=== PATIENT | female | born 1990 | race African-American/Black ===

== ENCOUNTER 2017-03-11 09:16 | Emergency (ER) | payer MEDICAID ==
[~2017-03-11] VITALS: Ht 170.2 cm; Wt 79.8 kg
[2017-03-11] MEDS ORDERED: SODIUM CHLORIDE 0.9% 1,000 ML IV ONE (09:32)
[2017-03-11] MEDS ORDERED: PROM25SU34 RC (10:00)
[2017-03-11] MEDS ORDERED: SODIUM CHLORIDE FLUSH 10ML SYR IVF ONE (10:00)
[2017-03-11] MEDS ORDERED: ONDANSETRON 2MG/ML, 2ML IVPush ONE (10:00)
[2017-03-11] MEDS ORDERED: ONDA4TAB7 PO (10:00)
[2017-03-11] MEDS ORDERED: SODIUM CHLORIDE 0.9% 1,000ML IVBOLUS ONE (10:00)
[2017-03-11] MEDS ORDERED: ONDANSETRON 2MG/ML, 2ML ONE (10:10)
[2017-03-11] MEDS ORDERED: HYDROmorphone 1 MG/ML, 1ML ONE ×2 (10:10→11:38)
[2017-03-11] MEDS: HYDROmorphone 1 MG/ML, 1ML IVPush PRN ×2 (10:39→11:44)
[2017-03-11 10:56] LABS: ASPARTATE AMINO TRANSFERASE 11 U/L (15-37); BLOOD UREA NITROGEN 7 mg/dL (7-18)
[2017-03-11 12:56] VITALS: BP 101/55
== END 2017-03-11 12:58 | disposition home or self-care (01) ==
LOC: ED 09:45
DX: R10.12 Left upper quadrant pain (principal); R10.11 Right upper quadrant pain; R10.13 Epigastric pain; F17.200 Nicotine dependence, unspecified, uncomplicated; K80.20 Calculus of gallbladder without cholecystitis without obstruction
CPT/HCPCS: 36415; 76700; 80053; 81003; 83605; 83690; 84703; 85025; 96361; 96374; 96375; 96376; 99285; J1170; J2405; J7030

== ENCOUNTER 2020-11-08 18:07 | Emergency (ER) | payer MEDICAID ==
[~2020-11-08] VITALS: Ht 170.2 cm; Wt 65.5 kg
[~2020-11-08 18:07] MED LIST: ONDA4TAB7 PO; PROM25SU34 RC
[2020-11-08 18:38] LABS: MICROSCOPIC AUTO
--- NOTE | 2020-11-08 18:49 | NUR ---
received report from anthony MOISE and Sandy MOISE. i assume care at this time
[2020-11-08 18:53] LABS: BASOPHILS % (AUTO) 0 % (0-1); EOSINOPHILS % (AUTO) 2 % (1-7); LYMPHOCYTES % (AUTO) 24 % (22-44); MD NO; MEAN CORPUSCULAR HEMOGLOBIN 29.7 pg (27.0-34.8); MEAN CORPUSCULAR HGB CONC 33.6 g/dL (32.4-35.8); MEAN PLATELET VOLUME 7.6 fL (7.4-10.4); MONOCYTES % (AUTO) 7 % (2-9); NEUTROPHILS % (AUTO) 67 % (42-75); PLATELET COUNT 289 x10^3/uL (130-400); RED BLOOD COUNT 3.82 x10^6/uL (3.82-5.3); RED CELL DISTRIBUTION WIDTH 15.6 % (9.6-15.2)
[2020-11-08] MEDS ORDERED: SODIUM CHLORIDE 0.9% 1,000ML IVBOLUS ONE ×2 (19:00→20:00)
[2020-11-08] MEDS ORDERED: SODIUM CHLORIDE FLUSH 10ML SYR IVF ONE (19:00)
[2020-11-08] MEDS ORDERED: FERR-51 PO (19:05)
[2020-11-08] MEDS ORDERED: LEVO500T8 PO (19:05)
[2020-11-08] MEDS ORDERED: METR-90 PO (19:05)
--- NOTE | 2020-11-08 19:05 | NUR ---
IV placed and RN reviewed plan of care with patient. in NAD. VS remain stable on RA. will continue to monitor
[2020-11-08 19:06] LABS: ALANINE AMINOTRANSFERASE 16 U/L (12-78); ALBUMIN 3.3 g/dL (3.4-5.0); ANION GAP 5 mmol/L (5-15); CALCIUM 8.2 mg/dL (8.5-10.1); CHLORIDE 106 mmol/L (98-107); CREATININE 0.65 mg/dL (0.55-1.02)
[2020-11-08 19:11] LABS: ALKALINE PHOSPHATASE 43 U/L (45-117); BILIRUBIN,TOTAL 0.2 mg/dL (0.2-1.0); TOTAL PROTEIN 6.8 g/dL (6.4-8.2)
--- NOTE | 2020-11-08 20:02 | NUR ---
patient resting in bed in NAD. call keys in reach. pillow and warm blanket provided. lights dimmed per patient preference. 2nd L NS bolus initiated
--- NOTE | 2020-11-08 20:36 | NUR ---
patient notified me that she needs to leave. i did notify patient that dr. nelson ordered an US to visualize if there is any retained products form and she states again "i need to leave and get home to my kids". dr. nelson notified and he states that patient can leave AMA but he does not recommend she leave before testing complete. VS remain stable. call keys in reach. will continue to monitor.
--- NOTE | 2020-11-08 20:48 | NUR ---
patient remains to verbalize want to leave AMA. RN to bedside and explained/reviewed risk of leaving AMA. these include retaining products that could lead to sepsis and ultimately as reported by provider. patient also made aware of HCG levels remain elevated and this could also mean retained products. patient acknowledges risks and continues desire to leave AMA. IV removed per dc protocol. all personal belongings with patient. steady gait to lobby. prescription handed directly to patient. VS remain stable on departure
[2020-11-08 20:50] VITALS: BP 101/56
== END 2020-11-08 20:53 | disposition home or self-care (01) ==
LOC: ED 20:12
DX: N93.9 Abnormal uterine and vaginal bleeding, unspecified (principal); R10.30 Lower abdominal pain, unspecified; R94.31 Abnormal electrocardiogram [ECG] [EKG]; R42 Dizziness and giddiness; R89.1 Abnormal level of hormones in specimens from other organs, systems and tissues
CPT/HCPCS: 36415; 80053; 81001; 84702; 85025; 87086; 93005; 96360; 96361; 99285; J7030